=== PATIENT | male | born 1975 | race Caucasian/White ===

== ENCOUNTER 2018-04-20 06:58 | Emergency (ER) | payer SELFPAY | END 2018-04-20 07:47 | disposition home or self-care (01) | LOC: ERS 06:58 | DX: J32.9 Chronic sinusitis, unspecified (principal); Z87.891 Personal history of nicotine dependence | CPT/HCPCS: 99283 ==

== ENCOUNTER 2023-07-09 05:37 | Emergency (ER) | payer OTHER, SELFPAY | END 2023-07-09 07:12 | disposition home or self-care (01) | LOC: ERS 05:37 | DX: L72.3 Sebaceous cyst (principal); Z87.891 Personal history of nicotine dependence | CPT/HCPCS: 96372; 99282 ==